=== PATIENT | female | born 1970 | race Caucasian/White ===

== ENCOUNTER 2019-07-15 09:47 | Inpatient (IN) | payer OTHER, SELFPAY ==
[2019-07-15] MEDS ORDERED: Adacel (T-DAP) 0.5 ML SYRINGE ONE (09:49)
[2019-07-15] MEDS ORDERED: Morphine 4 MG/ML VIAL ONE (10:12)
[2019-07-15] MEDS ORDERED: Fentanyl 100 MCG/2 ML VIAL ONE ×3 (10:36→12:59)
[2019-07-15] MEDS ORDERED: Midazolam HCl 2 mg/2 ml Vial ONE (10:36)
[2019-07-15] MEDS ORDERED: Rocuronium Bromide 10 MG/ML (10ML VIAL) ONE (10:49)
[2019-07-15] MEDS ORDERED: EPHEDRINE 25 MG/5 ML SYRINGE ONE (10:49)
[2019-07-15] MEDS ORDERED: Succinylcholine Chloride 20 MG/ML 10 ml SYRINGE FS ONE (10:49)
[2019-07-15] MEDS ORDERED: PHENYLEPHRINE-NS 100 MCG/ML 10 ML SYRINGE ONE (10:49)
[2019-07-15] MEDS ORDERED: Lidocaine 1% PF 5 ML VIAL ONE (10:49)
[2019-07-15] MEDS ORDERED: Ondansetron PF 4 MG/2 ML Vial ONE (10:49)
[2019-07-15] MEDS ORDERED: PROPOFOL 200 MG/20 ML VIAL ONE (10:49)
[2019-07-15] MEDS ORDERED: Ondansetron PF 4 MG/2 ML Vial IVP PRN (10:54)
[2019-07-15] MEDS ORDERED: Dextrose 50% Abboject 50 ML SYRINGE SLOW IVP PRN (10:54)
[2019-07-15] MEDS ORDERED: Dextrose 5% in Water 1,000 ML IV PRN (10:54)
[2019-07-15] MEDS ORDERED: hydrALAZINE 20 MG/ML VIAL SLOW IVP PRN (10:54)
[2019-07-15] MEDS ORDERED: Promethazine HCl 25 MG/ML VIAL IM PRN ×2 (10:54→12:34)
[2019-07-15] MEDS ORDERED: Ondansetron ODT 4 MG TAB PO PRN (10:54)
[2019-07-15] MEDS ORDERED: traMADol HCl 50 MG TAB PO PRN ×2 (10:58→20:06)
[2019-07-15] MEDS ORDERED: Cyclobenzaprine 10 MG TAB PO PRN (10:58)
[2019-07-15] MEDS ORDERED: Ibuprofen 600 MG TAB PO PRN (10:58)
[2019-07-15] MEDS ORDERED: Sodium Chloride 0.9% 1,000 ML IV SCH (11:00)
--- NOTE | 2019-07-15 11:05 | HP ---
REQUESTING PHYSICIAN: Dr. Chanel. CONSULTS: Orthopedic Surgery, Dr. Castellon. CHIEF COMPLAINT: Tripped and fell last night, right wrist pain, level 2 trauma activation. HISTORY OF PRESENT ILLNESS: This is a 49-year-old female, who presented to [facility] this morning after she tripped and fell last night in the shower. The patient denies any loss of consciousness and denies hitting her head. The patient denies any other injuries. The patient was evaluated and found to have a right open distal radius ulnar fracture. The patient was transferred to [facility] for definitive care. The patient was given Ancef, tetanus injection, and pain medications. The patient has been n.p.o. since midnight. Labs and x-rays were completed at [facility]. The patient denies any recent cough , cold, chills, or fever recently. The patient does report seasonal allergies, in which she does not take anything for. The patient did receive 1 mg of Dilaudid at [facility], normal saline at 1000 mL bolus, an additional 1 mg of Dilaudid IV , Zofran 4 mg IV. REVIEW OF SYSTEMS: A 10-point review of systems is negative unless otherwise indicated in the above HPI. PAST MEDICAL HISTORY: 1. Endometriosis. 2. Hypertension. 3. Hyperlipidemia. PAST SURGICAL HISTORY: Cyst removal from ovaries when she was 20. FAMILY HISTORY: Father of heart disease, first NV at age 48. SOCIAL HISTORY: The patient drinks socially. The patient denies tobacco use, denies illicit drug use. 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 The patient was in the [facility] area visiting her sister. ALLERGIES: NO KNOWN DRUG ALLERGIES. HOME MEDICATIONS: 1. Lisinopril 40 mg daily. 2. Simvastatin 40mg daily. 3. Celexa 40mg daily. OBJECTIVE: VITAL SIGNS: Temperature 98.3, blood pressure 152/77, heart rate 100, SpO2 of 100% on room air, respirations 16. GENERAL: Well-appearing, obese, middle-age female, awake, alert, in no distress. HEENT: Head is atraumatic and normocephalic. Mucous membranes are moist. Normal range of motion of neck. Trachea is midline. There is no JVD. RESPIRATORY: Equal breath sounds bilateral. No wheezing, rales, or rhonchi. CARDIAC: Regular rate, regular rhythm. No murmurs. No pedal edema. ABDOMEN: Soft, nontender, nondistended. EXTREMITIES: Pelvis is stable. Right upper extremity in a splint, normal sensation. Cap refill is less than 2 seconds. Unable to visualize the open wound due to splint being in place. All other extremities are unremarkable and neurovascularly intact. NEURO: No focal deficits. GCS 15. LABORATORY DATA: WBC 12.7, RBC 4.85, hemoglobin 13.2, hematocrit 38.7, platelets 372. Glucose 118, BUN 10, creatinine 0.8, CK 757, sodium 137. DIAGNOSTIC DATA: Right wrist x-ray, impression, displaced overriding fractures of the mid to distal radial shaft and distal ulnar shaft. IMPRESSION: 1. Status post mechanical fall with delayed presentation. 2. Open right distal radius ulnar fracture. 3. Acute traumatic pain. 4. History of hypertension and hyperlipidemia. PLAN: Continue n.p.o. status. Pain control. The patient will be going to the OR with Dr. Castellon for repair of her right open wrist fracture in the next couple of hours. The patient will be placed on regular diet postop. PT and OT to evaluate and treat postop. The plan will be discussed with the attending after this dictation. The plan has been discussed with the patient who agrees. Job ID: [id number] [facility]
[2019-07-15] MEDS ORDERED: Ondansetron HCl/PF 4 MG/2 ML Vial IVP PRN (12:34)
[2019-07-15] MEDS ORDERED: Promethazine HCl 25 MG/ML VIAL SLOW IVP PRN (12:34)
[2019-07-15] MEDS ORDERED: HYDROmorphone 2 MG/ML VIAL ONE (13:04)
--- NOTE | 2019-07-15 13:04 | RAD ---
RIGHT FOREARM TWO VIEWS: History: Forearm injury. FINDINGS: A more transversely oriented distal radial shaft fracture and obliquely oriented distal ulnar shaft f ractures are present. Both fractures are one shaft width displaced. IMPRESSION: Distal radial and ulnar fractures. POS: [facility]
--- NOTE | 2019-07-15 13:09 | RAD ---
PORTABLE CHEST: History: Pre op FINDINGS: Heart size and mediastinum are within normal limits. The lungs are clear of infiltrates. No significa nt bony findings. IMPRESSION: No active intrathoracic disease. POS: [facility]
--- NOTE | 2019-07-15 13:33 | RAD ---
RIGHT FOREARM: Indication: Intraoperative imaging during ORIF. FINDINGS: There are two fluoroscopic images presented from the OR. These images show plate and screws transfixing the distal radius and ulna. POS: [facility]
--- NOTE | 2019-07-15 14:26 | OP ---
DATE OF PROCEDURE: 07/15/2019 PREOPERATIVE DIAGNOSIS: Right grade 1 open both-bone forearm fracture. POSTOPERATIVE DIAGNOSIS: Right grade 1 open both-bone forearm fracture. PROCEDURES PERFORMED: 1. One open reduction and internal fixation of right radial shaft. 2. Open reduction and internal fixation of right ulnar shaft. 3. Irrigation and debridement of right open forearm fracture. ANESTHESIA: General. 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 IMPLANTS: Synthes System was used with 3.5 mm LC-DCP 6-hole plate for the radial shaft and a Synthes 2.7 mm 7-hole plate for the ulnar shaft. COMPLICATIONS: None. DRAINS: None. SPECIMENS: None. OUTCOME: Satisfactory. INDICATIONS FOR PROCEDURE: Ms. Grant is a 49-year-old lady, who sustained a ground level fall on the evening prior to admission with some subsequent deformity and a small open wound over the ulnar aspect of the distal forearm. This morning, she presented to the [facility], where x-rays demonstrated a displaced both-bone distal forearm fracture with open wound overlying the subcutaneous border of the distal ulna. As such, the patient was given antibiotics in the emergency room and splinted and then transported to [facility] for orthopedic care and evaluation. The patient denies loss of consciousness. The patient cannot recall her last tetanus up date and as such, she was given a tetanus booster today in the emergency room. The patient now to undergo irrigation and debridement of this wound and open reduction and internal fixation. Informed consent has been obtained. I believe, all questions have been answered. DESCRIPTION OF PROCEDURE: The patient was brought to the operating room and a time-out performed followed by induction of general anesthesia. Next, a sterile prep and drape was performed of the right upper extremity. The patient was found to have a small 1-cm transverse wound at the distal 3rd of the forearm overlying the subcutaneous border of the ulna. This traumatic wound was then lengthened proximally and distally for a total length of approximately 4 inches and blunt dissection carried on. No foreign material was encountered. The wound clearly did track down to the level of the fracture of the ulna. Next, 3 L of normal saline with antibiotic irrigant was added to the irrigation, was flushed through the wound using Pulsavac. At the completion of this, attention was then placed in the volar radial aspect of the distal forearm. An incision was made basically overlying the area of the flexor carpi radialis. After skin was sharply incised, dissection was carried down between the interval of the flexor carpi radialis and the brachioradialis. The digital flexors were released off the radial shaft, exposing the fracture. The fracture hematoma was lavaged from the wound and then the fracture reduced and held in place with bone tenaculum. Next, a 6-hole 3.5 mm LC-DCP plate was applied to the volar cortex of the radial shaft. This was held in place with 3.5 mm cortical screws proximally and distally, getting good compression across the fracture. Once completed, attention was placed back at the ulnar wound exploiting the same wound. The fracture was reduced and then a volar 2.7 mm plate was applied to the distal ulnar shaft. At the completion of this, final AP and lateral C-arm images were obtained that showed acceptable alignment of fracture and hardware. The wounds were then again irrigated with Pulsavac and then closed in layers with 2-0 Vicryl, followed by rebeka. Xeroform gauze, Webril, and fiberglass splint was applied to the arm and then the patient was transferred to recovery room in stable condition. There were no complications. The patient tolerated the procedure well. Job ID: [id number]
[2019-07-15 14:38] VITALS: BMI 39.5
[2019-07-15] MEDS: Morphine 2 MG/ML SYRINGE SLOW IVP PRN ×2 (14:39→18:56)
[2019-07-15 14:58] LABS: #Basophils 0.1 thou/uL (0.0-0.2); #Eosinphils 0.1 thou/uL (0.0-0.7); #Lymphocytes 2.4 thou/uL (1.20-3.40); #Monocytes 1.2 thou/uL (0.11-0.59); #Neutrophils 10.9 thou/uL (1.40-6.50); %Basophils 0.5 % (0.0-1.0); %Eosinophils 0.5 % (0.0-10.0); %Lymphocytes 16.3 % (21.0-51.0); %Monocytes 7.9 % (0.0-10.0); %Neutrophils 74.8 % (42.0-75.0); Mean Corpuscular HGB CONC 32.6 g/dL (32.0-36.0); Mean Corpuscular Hemoglobin 27.8 pg (27.0-31.0); Mean Corpuscular Volume 85.3 fL (78.0-98.0); Mean Platelet Volume 7.2 fL (7.4-10.4); Platelet Count 300 thou/uL (130-400); RBC Distribution Width 13.9 % (11.5-14.5); Red Blood Cell (RBC) Count 4.32 mill/uL (4.20-5.40); White Blood Cell (WBC) Count 14.6 thou/uL (4.8-10.8)
[2019-07-15] MEDS: Acetaminophen 500 MG TAB PO SCH ×2 (17:30→17:43)
[2019-07-15] MEDS: traMADol HCl 50 MG TAB PO SCH ×2 (17:31→17:43)
[2019-07-15] MEDS: CEFAZOLIN 2 GM in Premix Bag 1 BAG IVPB SCH (18:35)
[2019-07-15] MEDS ORDERED: Morphine 2 MG/ML SYRINGE SLOW IVP PRN (20:05)
[2019-07-15] MEDS ORDERED: Ibuprofen 600 MG TAB PO SCH (20:15)
[2019-07-15] MEDS ORDERED: Gabapentin 100 MG CAP PO SCH ×2 (21:00→22:00)
[2019-07-15] MEDS ORDERED: Atorvastatin Calcium 20 MG TAB PO SCH (21:00)
[2019-07-15] MEDS: Senokot S 8.6-50 MG TAB PO SCH (21:05)
[2019-07-15] MEDS ORDERED: Morphine 4 MG/ML VIAL SLOW IVP PRN (21:54)
[2019-07-15] MEDS ORDERED: Acetaminophen/Codeine 30-300mg Tablet PO PRN (21:56)
[2019-07-15] MEDS ORDERED: Gabapentin 300 MG CAP PO SCH (21:57)
[2019-07-15] MEDS ORDERED: Ketorolac Tromethamine 30 MG/ML VIAL IVP SCH ×3 (22:00→22:15)
[2019-07-15] MEDS: Acetaminophen/Codeine 30-300mg Tablet PO PRN (22:09)
[2019-07-15] MEDS: Acetaminophen 325 MG TAB PO SCH (22:09)
--- NOTE | 2019-07-15 23:53 | PRG ---
DATE OF SERVICE: 07/15/2019 SUBJECTIVE: The patient was seen this evening during rounds. She was sitting up in bed. She is postop after fixation of her right open distal radius and ulnar fracture. The patient reporting pain 7/10 and reports pain medications are not working. She is tolerating p.o. intake. OBJECTIVE: VITAL SIGNS: Temperature 99.0, pulse 92, respirations 16, oxygen saturation 92% on room air, and blood pressure 114/72. GENERAL: Well-appearing middle-aged female, sitting up in bed with no signs of acute distress. PULMONARY: Equal chest rise and fall. No signs of acute respiratory distress. ASSESSMENT: 1. Status post fall from standing. 2. Right open distal radius and ulnar fracture, status post repair. 3. History of hypertension and hypothyroidism. 4. Postoperative pain. PLAN: Continue current diet. We will discontinue the patient's tramadol and start her on Tylenol 3. Also, she is to receive Toradol over the next 24 hours. Discontinue ibuprofen. Re-evaluate Pain Management later. The patient to work with Physical and Occupational Therapy tomorrow. She can likely be discharged home once her pain is controlled and if she can move around safely. Job ID: [id number]
[2019-07-16] MEDS: CEFAZOLIN 2 GM in Premix Bag 1 BAG IVPB SCH ×2 (03:53→10:00)
[2019-07-16] MEDS: Acetaminophen 325 MG TAB PO SCH ×2 (03:53→10:00)
[2019-07-16] MEDS: Ketorolac Tromethamine 30 MG/ML VIAL IVP SCH ×2 (03:54→10:00)
[2019-07-16] MEDS: Acetaminophen/Codeine 30-300mg Tablet PO PRN ×2 (03:55→10:36)
[2019-07-16 04:28] LABS: Hemoglobin 11.3 g/dL (12.0-16.0); Mean Corpuscular HGB CONC 32.5 g/dL (32.0-36.0); Mean Corpuscular Hemoglobin 28.2 pg (27.0-31.0); Mean Corpuscular Volume 86.8 fL (78.0-98.0); Mean Platelet Volume 7.5 fL (7.4-10.4); Platelet Count 273 thou/uL (130-400); RBC Distribution Width 14.1 % (11.5-14.5); Red Blood Cell (RBC) Count 4.01 mill/uL (4.20-5.40); White Blood Cell (WBC) Count 13.5 thou/uL (4.8-10.8)
[2019-07-16 04:29] LABS: Band 4 % (5-11); Eosinophils 7 % (0-10); Lymphocytes 17 % (21-51); MDiff Complete? YES; Monocytes 5 % (0-10); Neutrophil 67 % (42-75)
[2019-07-16 04:47] LABS: Anion Gap 11 mmol/L (10-20); BUN (Urea Nitrogen) 11 mg/dL (7.0-18.7); Calc. Creatinine Clearance 152 mL/min (70-130); Calcium 7.6 mg/dL (7.8-10.44); Carbon Dioxide 24 mmol/L (22-29); Chloride 103 mmol/L (98-107); Estimated GFR-MDRD 72; Glucose 114 mg/dL (70-105); Potassium 3.5 mmol/L (3.5-5.1); Sodium 134 mmol/L (136-145)
[2019-07-16] MEDS ORDERED: Potassium Chloride 20 MEQ TAB PO SCH (08:00)
[2019-07-16] MEDS: Senokot S 8.6-50 MG TAB PO SCH (08:00)
[2019-07-16] MEDS ORDERED: Polyethylene Glycol 3350 17 GM Packet PO SCH (09:00)
[2019-07-16] MEDS ORDERED: Lisinopril 20 MG TAB PO SCH (09:00)
[2019-07-16] MEDS ORDERED: Citalopram 20 MG TAB PO SCH (09:00)
[2019-07-16 09:04] VITALS: BP 107/70; TEMP 98.4
--- NOTE | 2019-07-16 11:01 | DIS ---
DATE OF ADMISSION: 07/16/2019 DATE OF DISCHARGE: 07/16/2019 RESIDENT: Pato Ureña MD CONSULTS: Orthopedic Surgery, Dr. Castellon. PROCEDURE PERFORMED: 1. Open reduction and internal fixation of right radial shaft, open reduction and internal fixation of right ulnar shaft, irrigation and debridement of right open forearm fracture performed on 07/15/[address] Castellon. 2. Right forearm x-ray on 07/15/2019, demonstrating distal radial and ulnar fractures. 3. Chest x-ray on 07/15/2019, demonstrating no acute intrathoracic disease. PRIMARY DIAGNOSIS: Status post fall from standing with right open distal radius and ulnar fracture, status post open reduction and internal fixation. SECONDARY DIAGNOSES: 1. Hypertension. 2. Hypothyroidism. 3. Endometriosis. 4. Hyperlipidemia. DISCHARGE MEDICATIONS: 1. Tylenol No. 3 take 1 to 2 tablets q.6 hours p.r.n. [id number] pain. 2. Motrin 600 mg q.8 hours. 3. Celexa 40 mg p.o. daily. 4. Simvastatin 40 mg p.o. daily. 5. Lisinopril 40 mg p.o. daily. DISCONTINUED MEDICATIONS: None. HISTORY OF PRESENT ILLNESS AND HOSPITAL COURSE: The patient is a pleasant 49-year-old female, who presented to an outside urgent care after falling in the shower, denying any loss of consciousness or hitting her head. She was evaluated at that Urgent Care and found to have a right open distal radius and ulnar fracture and was subsequently transferred to [facility] for definitive treatment and care. The patient was given Ancef, tetanus, and pain medications. She was subsequently taken to the OR by Dr. Castellon where an open reduction and internal fixation was performed. The patient tolerated the procedure well. The patient was continued on IV antibiotics 24 hours postoperatively. Overnight the patient's pain was well controlled. She was ambulating frequency, tolerating p.o. well, voiding and stooling without difficulty. She is very eager for discharge. On the morning of discharge, the patient was doing very well. Had no concerns or complaints. States her pain was very well controlled. Discharge plan discussed with the patient who voiced agreement and understanding of discharge plan and appropriate followup as an outpatient with Dr. Castellon. All questions were answered appropriately. The patient was seen and examined by Dr. Deleon on morning rounds on the day of discharge. DISPOSITION: Stable. DISCHARGE INSTRUCTIONS: 1. Location: Home. 2. Diet: Heart healthy. 3. Activity as tolerated with orthopedic limitations of right upper extremity. 4. Followup: The patient is to follow up with Dr. Castellon in 10 days as previously directed. The patient is to follow up with primary care physician within 1 to 2 weeks. Job ID: [id number]
--- NOTE | 2019-07-16 12:04 | HP ---
ADDENDUM: Bee Grant is seen in the emergency room as a trauma patient, seen by Steffanie Allred NP. I agree with her treatment completely. Why she is a level 2 trauma, I cannot imagine. She had a same-height fall, is morbidly obese, has open fracture. She is transferred from [facility] to this facility, undergoing ORIF of her wrist and is staying for hours for antibiotics due to open fracture. I agree with management today. Job ID: [id number]
== END 2019-07-16 10:59 | disposition home or self-care (01) | DRG 512 ==
LOC: ERS 09:47 → SURG A 10:42 → ERS 10:43 → SURG A 14:27 → ERS 07-16 09:27 → SURG A 07-16 09:28
PROVIDERS: ADMIT Specialist; ATTEND Specialist
PROC: 0PSH04Z Reposition Right Radius with Internal Fixation Device, Open Approach (ICD-10-PCS; principal; 2019-07-15)
PROC: 0PSK04Z Reposition Right Ulna with Internal Fixation Device, Open Approach (ICD-10-PCS; 2019-07-15)
PROC: 3E0234Z Introduction of Serum, Toxoid and Vaccine into Muscle, Percutaneous Approach (ICD-10-PCS; 2019-07-15)
DX: S52.321B Displaced transverse fracture of shaft of right radius, initial encounter for open fracture type I or II (principal); S52.231B Displaced oblique fracture of shaft of right ulna, initial encounter for open fracture type I or II; I10 Essential (primary) hypertension; E03.9 Hypothyroidism, unspecified; E78.5 Hyperlipidemia, unspecified; N80.9 Endometriosis, unspecified; W01.0XXA Fall on same level from slipping, tripping and stumbling without subsequent striking against object, initial encounter; Y92.002 Bathroom of unspecified non-institutional (private) residence as the place of occurrence of the external cause; Z79.899 Other long term (current) drug therapy; Z23 Encounter for immunization; E66.01 Morbid (severe) obesity due to excess calories; Z68.39 Body mass index [BMI] 39.0-39.9, adult
CPT/HCPCS: 29125; 36415; 71045; 76000; 80048; 83735; 84100; 85007; 85025; 85027; 90471; 90715; 93005; 96374; C1713; G0390; J0690; J1170; J1885; J2001; J2250; J2270; J2405; J2704; J3010